=== PATIENT | male | born 1975 | race Caucasian/White ===

== ENCOUNTER 2024-07-14 06:07 | Emergency (ER) | payer BC, SELFPAY ==
[2024-07-14] VITALS (8 sets, daily range): BP systolic 125–141; BP diastolic 77–101; PULSE 67–86; RESP 15–23; O2SAT 91–97; BMI 31.8
--- NOTE | 2024-07-14 06:09 | W.ED.CHESTPA ---
HPI - Chest Pain General: Chief Complaint: Chest Pain Stated Complaint: Cp took 2 nitro Time Seen by Provider: 07/14/24 06:09 History of Present Illness: 48-year-old male with a known history of coronary disease previously had a interventions for his heart in [place] where he had stents he is also had angiograms within the last year at [facility] in [place]. Patient was sitting resting at home while on a conference call this morning and began to have chest discomfort as he describes it was no radiation into his neck arms or back however he did get diaphoretic and slightly short of breath. He took 2 sublingual nitro pills which did seem to help. Interestingly he said his worst the discomfort was at 2-3 out of 10 when he arrives here he says it still a 2 out of 10. He did have some symptoms of lightheadedness dizziness and flushing after taking the sublingual nitro which he states he is experienced in the past when taking sublingual nitro. He has not had any exertional symptoms in the last couple of weeks he has not had any other episodes in the last few weeks other chest discomfort or felt the need to take nitro recently. Patient has had significant heart disease in the past has AICD in place he said that his last echocardiogram the told him his ejection fraction was 30 to 35%. His initial EKG is suspicious patient states that he is told he always has a very abnormal looking EKG. He has not previously had any EKGs at our facility. Associated symptoms: Deny abdominal pain, dyspnea or fever(s) Related Data Home Medications ?Medication ?Instructions ?Recorded ?Confirmed aspirin 81 mg tablet,delayed 81 mg PO DAILY 07/14/24 07/14/24 release (Kayla Low Dose Aspirin) bupropion HCl 150 mg 24 hr tablet, 150 mg PO DAILY 07/14/24 07/14/24 extended release carvedilol 25 mg tablet 25 mg PO BID 07/14/24 07/14/24 clopidogrel 75 mg tablet 75 mg PO DAILY 07/14/24 07/14/24 dapagliflozin propanediol 10 mg 10 mg PO DAILY 07/14/24 07/14/24 tablet (Farxiga) digoxin 125 mcg (0.125 mg) tablet 0.125 mg PO DAILY 07/14/24 07/14/24 (Digitek) ezetimibe 10 mg tablet 10 mg PO DAILY 07/14/24 07/14/24 insulin glargine 100 unit/mL 15 unit SUBCUT DAILY 07/14/24 07/14/24 subcutaneous solution (Lantus U-100 Insulin) nitroglycerin 0.4 mg sublingual 0.4 mg sublingual Q5M PRN HEART 07/14/24 07/14/24 tablet omeprazole 20 mg tablet,delayed 20 mg PO DAILY 07/14/24 07/14/24 release ranolazine 500 mg tablet,extended 500 mg PO BID 07/14/24 07/14/24 release,12 hr rosuvastatin 40 mg tablet 40 mg PO DAILY 07/14/24 07/14/24 sacubitril 97 mg-valsartan 103 mg 1 tab PO BID 07/14/24 07/14/24 tablet (Entresto) spironolactone 25 mg tablet 25 mg PO BID 07/14/24 07/14/24 torsemide 20 mg tablet 40 mg PO DAILY 07/14/24 07/14/24 Allergies Allergy/AdvReac Type Severity Reaction Status Date / Time meperidine (From Demerol) Allergy ADR-Nausea Verified 07/14/24 06:13 Review of Systems Const: Denies: fever(s) or chills Card: Denies: chest pain Resp: Denies: dyspnea GI: Denies: abdominal pain : Denies: dysuria, urinary frequency or urinary urgency Musc: Denies: neck pain or back pain Skin/Breast: Denies: rash PFS ED PFSH: Medical History (Updated 07/14/24 @ 11:05 by Juan Hernandez DO) Diabetes mellitus Physical Exam Const: COMMON NORMALS: no acute distress GENERAL APPEARANCE: cooperative and comfortable ORIENTATION/CONSCIOUSNESS: Yes awake, Yes oriented to person, Yes oriented to place and Yes oriented to time HENMT: COMMON NORMALS: normocephalic, atraumatic and hearing grossly normal bilaterally HEAD & SCALP: normocephalic and atraumatic Resp: COMMON NORMALS: normal respiratory effort, No retractions, No use of accessory muscles and clear to auscultation bilaterally AUSCULTATION: clear to auscultation bilaterally Cardio: COMMON NORMALS: regular rate, regular rhythm and No murmurs present (Cardio) RATE: regular rate RHYTHM: regular rhythm GI: COMMON NORMALS: Soft to palpation and No hepatosplenomegaly present AUSCULTATION: Yes normoactive bowel sounds PALPATION: Yes Soft to palpation, No Tenderness to palpation present (GI), No Guarding due to palpation present (GI) and Yes No hepatosplenomegaly present Extremity: COMMON NORMALS: normal to inspection, capillary refill normal, no clubbing, cyanosis or edema, no calf tenderness and no pedal edema Neuro: SENSORIUM/ORIENTATION: Yes oriented to person, Yes oriented to place and Yes oriented to time Skin: COMMON NORMALS: no rashes or lesions noted GENERAL SKIN EXAM: no rashes or lesions noted Course Vital Signs: Vital signs: Vital Signs Pulse Rate 86 07/14/24 14:16 Respiratory Rate 16 07/14/24 14:16 Blood Pressure 141/86 07/14/24 14:16 Pulse Oximetry 95 07/14/24 14:16 Oxygen Delivery Me thod Room Air 07/14/24 09:47 MDM - Chest Pain Medical Decision Making 0630 Unfortunately we have no records. Patient's history is very concerning as initial EKG shows Q waves in 1 and aVL as well as in all of the anterior leads. There is no ST elevation particularly in V2 3 and 4 very slight elevation in 1 5 and 6. Does not completely meet criteria. After taking history and reviewing EKG immediately repeated an EKG 6 minutes after the first. The second EKG is equally as concerning however patient states she has minimal symptoms at this time we contacted Dr. Talamantes and had him review discussed the case with him he recommended trending troponins did not feel that this represented a STEMI at this time. We are still working at the time of this dictation to get his old EKGs from [facility]. 0709 received records from [facility] EKG dated February 03, 2024 similar in appearance to today's EKG done here no significant changes or acute changes. The January 19, 2024 EKG also had the Q waves and appear as though ST elevation in V2345 and 6. There is a notation on that report that the EKG was unchanged from November 25, 2023 and that the anterior lateral changes date back to March 17, 2023. I had placed patient on observation orders were written of discussed with cardiology and with hospitalist. Patient is pain-free on 10 mg of IV nitro. Cardiology consulted nurse practitioner for cardiology services seen the patient patient expressed that they wanted to go home. Patient was advised by cardiology he could go home and follow-up with his primary bag printer. Discharge recommendations per cardiology. Offered patient transfer to [facility] they declined they have a follow-up appointment in 1-2 weeks with the congestive heart failure clinic in [place]. Attempted to contact cardiology group that he sees at [facility] to update and arrange for shorter-term follow-up unable to contact the cardiology group. Their office was closed. Could not contact through the house painter helper at [facility]. Did attempt to leave a message through the house painter helper. Medical Records I reviewed the patient's medical records. Lab Data I reviewed the patient's lab results. 07/14/24 06:18 07/14/24 06:18 Radiology Impressions Chest X-Ray 07/14/24 06:23 IMPRESSION: 1. No acute cardiopulmonary finding. Laboratory Results WBC 11.30 10^3/uL (3.29-11.43) 07/14/24 06:18 RBC 4.72 10^6/uL (3.85-5.65) 07/14/24 06:18 Hgb 15.20 g/dL (11.27-16.99) 07/14/24 06:18 Hct 46.8 % (37-53) 07/14/24 06:18 MCV 99.2 fl (82-101) 07/14/24 06:18 MCH 32.2 pg (27-33) 07/14/24 06:18 MCHC 32.5 g/dL (30-55) 07/14/24 06:18 RDW 17.1 % (12.1-15.1) H 07/14/24 06:18 Plt Count 276 10^3/cmm (157-399) 07/14/24 06:18 MPV 10.1 fL (7.4-10.4) 07/14/24 06:18 Neut % (Auto) 70.0 % 07/14/24 06:18 Lymph % (Auto) 17.3 % 07/14/24 06:18 [place] % (Auto) 9.8 % 07/14/24 06:18 Eos % (Auto) 1.2 % 07/14/24 06:18 Baso % (Auto) 0.5 % 07/14/24 06:18 Neut # (Auto) 7.91 10^3/uL (1.8-7.7) H 07/14/24 06:18 Lymph # (Auto) 2.0 10^3/uL (0.8-4.8) 07/14/24 06:18 [place] # (Auto) 1.1 10^3/uL (0.2-0.9) H 07/14/24 06:18 Eos # (Auto) 0.1 10^3/uL (0.0-0.8) 07/14/24 06:18 Baso # (Auto) 0.1 10^3/uL (0.0-0.1) 07/14/24 06:18 Nucleated RBC % (auto) 0 % 07/14/24 06:18 Nucleated RBCs # 0.0 /100WBC 07/14/24 06:18 Sodium 138 mmol/L (136-145) 07/14/24 06:18 Potassium 4.6 mmol/L (3.5-5.1) 07/14/24 06:18 Chloride 101 mmol/L (98-107) 07/14/24 06:18 Carbon Dioxide 26 mmol/L (22-29) 07/14/24 06:18 Anion Gap 15.6 (5-19) 07/14/24 06:18 BUN 13 mg/dL (6-20) 07/14/24 06:18 Creatinine 0.6 mg/dL (0.7-1.2) L 07/14/24 06:18 GFR Calculation 143.8 mL/min (90-130) H 07/14/24 06:18 Glucose 103 mg/dL (65-115) 07/14/24 06:18 Calculated Osmolality 286 mOsm/kg (285-295) 07/14/24 06:18 Calcium 9.7 mg/dL (8.5-10.5) 07/14/24 06:18 Total Bilirubin 0.4 mg/dL (0.15-1.2) 07/14/24 06:18 AST 32 U/L (0-40) 07/14/24 06:18 ALT 53 U/L (0-41) H 07/14/24 06:18 Alkaline Phosphatase 73 U/L (40-130) 07/14/24 06:18 Troponin T Baseline 18 ng/L (0-15) H 07/14/24 06:18 Troponin T 120 Minute 15.41 ng/L (0-15) H 07/14/24 08:34 Delta Troponin T -2.59 ABS# (0-10) L 07/14/24 08:34 Troponin T Hi Sens 6Hr 15.41 ng/L (0-15) H 07/14/24 12:04 Troponin T Hi Sens 6Hr Delta -2.59 ng/L (0-12) L 07/14/24 12:04 Total Protein 7.5 g/dL (6.6-8.7) 07/14/24 06:18 Albumin 4.4 g/dL (3.5-5.2) 07/14/24 06:18 Globulin 3.1 g/dL (1.3-4.6) 07/14/24 06:18 Urine Color Yellow (Yellow) 07/14/24 09:59 Urine Appearance Clear (CLEAR) 07/14/24 09:59 Urine pH 6.5 (5-7) 07/14/24 09:59 Ur Specific [place] 1.015 (1.005-1.030) 07/14/24 09:59 Urine Protein Neg (Negative) 07/14/24 09:59 Urine Glucose (UA) 2+ (Normal) H 07/14/24 09:59 Urine Ketones 1+ (Negative) H 07/14/24 09:59 Urine Blood Neg (Negative) 07/14/24 09:59 Urine Nitrate Negative (Negative) 07/14/24 09:59 Urine Bilirubin Neg (Negative) 07/14/24 09:59 Urine Urobilinogen 4 mg/dL (Negative) H 07/14/24 09:59 Ur Leukocyte Esterase Negative (Negative) 07/14/24 09:59 Urine RBC 3-5 /hpf (0-2) 07/14/24 09:59 Urine WBC 0-5 /hpf (0-5) 07/14/24 09:59 Ur Squamous Epith Cells 0-5 /hpf (0-5) 07/14/24 09:59 Amorphous Sediment Not Reportable 07/14/24 09:59 Urine Bacteria None seen /hpf (NONE) 07/14/24 09:59 Hyaline Casts 0.40 /lpf 07/14/24 09:59 All radiology interpretation(s) finalized by discharge EKG Data EKG 1: Interpretation: Initial EKG 07/14/2024 6:10 AM EKG shows a sinus rhythm there is subtle ST elevation at V1 through V4 most notable in V3. V3 has 2 mm of elevation in V2 and 4 less than 1. No reciprocal changes there are Q waves in all of the anterior leads. No ST elevation in the inferior leads or other leads. Q waves noted in 1 and aVL as well. No ST wave inversion or depression. Rate of 77 NC interval 156 QT 350 Immediately repeated since we did not have old EKGs to compare to at 616 EKG shows similar findings as above. EKG rate of the second EKG at 68 bpm with NC interval of 133 QT interval of 364. Discharge Plan Discharge Patient Disposition: Home Clinical Impression: Unstable angina pectoris Condition: Stable Prescriptions: No Action spironolactone 25 mg tablet 25 mg PO BID bupropion HCl 150 mg tablet extended release 24 hr 150 mg PO DAILY dapagliflozin propanediol [Farxiga] 10 mg tablet 10 mg PO DAILY carvedilol 25 mg tablet 25 mg PO BID insulin glargine [Lantus U-100 Insulin] 100 unit/mL solution 15 unit SUBCUT DAILY torsemide 20 mg tablet 40 mg PO DAILY clopidogrel 75 mg tablet 75 mg PO DAILY digoxin [Digitek] 125 mcg (0.125 mg) tablet 0.125 mg PO DAILY ezetimibe 10 mg tablet 10 mg PO DAILY ranolazine 500 mg tablet extended release 12 hr 500 mg PO BID Entresto 97-103 mg tablet 1 tab PO BID aspirin [Kayla Low Dose Aspirin] 81 mg Tablet,Delayed Release (Dr/Ec) 81 mg PO DAILY nitroglycerin 0.4 mg Tablet, Sublingual 0.4 mg SUBLINGUAL Q5M PRN (Reason: HEART ) Rx Instructions: do not exceed 3 doses per episode omeprazole 20 mg Tablet,Delayed Release (Dr/Ec) 20 mg PO DAILY rosuvastatin 40 mg tablet 40 mg PO DAILY Discharge Orders: Discharge ED (Routine); Ordered 07/14/24 Ordered By: Juan Hernandez Patient Instructions: Opioid Safety, Pain Management Activity Restrictions/Additional Instructions: You were seen and evaluated in the emergency room discharge instructions per bag printer recommendation. Return to ER if has more chest pain symptoms. Print Language: [place] Coding Level of Care Code ED Exhibitions Curator for Damon Orlando
--- NOTE | 2024-07-14 06:10 | ECG_ITS ---
[employer] Test Date: 2024-07-14 Pat Name: Jabari Boyd Department: Room: Gender: Male Service Rig Operator: : 1975 Requested By: Juan Allen Order Number: [id number] Paty MD: Maicol Vazquez M.D. Measurements Intervals [place] Rate: 77 P: 62 VT: 156 QRS: -6 QRSD: 97 T: 96 QT: 350 QTc: 397 Interpretive Statements SINUS RHYTHM ANTERIOR MYOCARDIAL INFARCTION , OF INDETERMINATE AGE [40+ ms Q WAVE AND/OR ST/T ABNORMALITY IN V3/V4] MODERATE T-WAVE ABNORMALITY, CONSIDER LATERAL ISCHEMIA [-0.1+ mV T-WAVE IN I/aVL/V5/V6] INTERPRETATION BASED ON A DEFAULT AGE OF 40 YEARS No previous ECG available for comparison Electronically Signed On 07-14-2024 14:21:33 CDT by Maicol Vazquez M.D. [id number] [id number]
--- NOTE | 2024-07-14 06:16 | ECG_ITS ---
[facility] Date: 2024-07-14 Pat Name: Jabari Boyd Department: Room: Gender: Male Flight Manager: : 1975 Requested By: Juan Allen Order Number: [id number] Paty MD: Maicol Vazquez M.D. Measurements Intervals [place] Rate: 68 P: -19 [place]: 133 QRS: 0 QRSD: 113 T: 105 QT: 364 QTc: 389 Interpretive Statements SINUS RHYTHM ANTEROLATERAL MYOCARDIAL INFARCTION , PROBABLY RECENT [40+ ms Q WAVE IN I/aVL/V3-V6] ACUTE RI INTERPRETATION BASED ON A DEFAULT AGE OF 40 YEARS Compared to ECG 07/14/2024 06:10:36 T-wave abnormality no longer present Possible ischemia no longer present Myocardial infarct finding still present Electronically Signed On 07-14-2024 14:21:28 CDT by Maicol Vazquez M.D. [id number] [id number]
--- NOTE | 2024-07-14 06:23 | XR_ITS ---
WS: [id number] Exam: XR chest 1V portable [id number] Date/Time of Exam: 07/14/2024 6:47 AM Reason For Exam: dyspnea/cough No priors. The lungs are fully inflated and clear. Cardiomediastinal silhouette is unremarkable for technique. No pleural effusions. A cardiac pacer superimposes the LEFT chest. Bony structures appear normal. XR/XR chest 1V portable [id number] IMPRESSION: 1. No acute cardiopulmonary finding.
--- NOTE | 2024-07-14 06:28 | PC.NURSE ---
EKG sent to Dr. Mejia for review
[2024-07-14] MEDS: nitroglycerin drip 50 MG/250 ML PREMIX IV (06:32)
[2024-07-14] MEDS: aspirin 81 mg Chew Tablet 324 MG PO (06:32)
[2024-07-14 06:43] LABS: Troponin(5th) Baseline 18 ng/L (0-15)
[2024-07-14 06:45] LABS: Alanine Aminotransferase 53 U/L (0-41); Albumin Level 4.4 g/dL (3.5-5.2); Alkaline Phosphatase 73 U/L (40-130); Anion Gap 15.6 (5-19); Aspartate Amino Transferase 32 U/L (0-40); Blood Urea Nitrogen 13 mg/dL (6-20); Calcium 9.7 mg/dL (8.5-10.5); Carbon Dioxide 26 mmol/L (22-29); Chloride 101 mmol/L (98-107); Globulin 3.1 g/dL (1.3-4.6); Glomerular Filtration Rate 143.8 mL/min (90-130); Glucose 103 mg/dL (65-115); Osmolality Calculated 286 mOsm/kg (285-295); Potassium 4.6 mmol/L (3.5-5.1); Sodium 138 mmol/L (136-145); Total Bilirubin 0.4 mg/dL (0.15-1.2); Total Protein 7.5 g/dL (6.6-8.7)
[2024-07-14 06:50] LABS: Basophils # 0.1 10^3/uL (0.0-0.1); Basophils % 0.5 %; Eosinophils # 0.1 10^3/uL (0.0-0.8); Eosinophils % 1.2 %; Hematocrit 46.8 % (37-53); Lymphocytes % 17.3 %; Mean Corpuscular HGB Conc 32.5 g/dL (30-55); Mean Corpuscular Hemoglobin 32.2 pg (27-33); Mean Corpuscular Volume 99.2 fl (82-101); Mean Platelet Volume 10.1 fL (7.4-10.4); Monocytes # 1.1 10^3/uL (0.2-0.9); Monocytes % 9.8 %; Neutrophils # 7.91 10^3/uL (1.8-7.7); Nucleated Red Blood Cells % 0 %; Platelet Count 276 10^3/cmm (157-399); Red Blood Count 4.72 10^6/uL (3.85-5.65); Red Cell Distribution Width 17.1 % (12.1-15.1)
--- NOTE | 2024-07-14 08:24 | ECG_ITS ---
[employer] Test Date: 2024-07-14 Pat Name: Jabari Boyd Department: Room: Gender: Male Staking Technician: : 1975 Requested By: Juan Allen Order Number: [id number] Paty MD: Maicol Vazquez M.D. Measurements Intervals [place] Rate: 70 P: 19 AL: 168 QRS: -10 QRSD: 106 T: 90 QT: 360 QTc: 388 Interpretive Statements SINUS RHYTHM MINIMAL VOLTAGE CRITERIA FOR LVH, CONSIDER NORMAL VARIANT [MEETS CRITERIA IN ONE OF: R(aVL), S(V1), R(V5), R(V5/V6)+S(V1)] ANTERIOR MYOCARDIAL INFARCTION , OF INDETERMINATE AGE [40+ ms Q WAVE AND/OR ST/T ABNORMALITY IN V3/V4] Compared to ECG 07/14/2024 06:16:49 No significant changes Electronically Signed On 07-14-2024 14:26:05 CDT by Maicol Vazquez M.D. [id number] [id number]
[2024-07-14 08:59] LABS: Troponin 5 2HR 15.41 ng/L (0-15); Troponin 5 2HR Delta -2.59 ABS# (0-10)
--- NOTE | 2024-07-14 09:17 | PC.PHAR ---
pATIENT STATES HE TAKES fAEXIGA Margo STATES THEY HAVEN'T FILLED IT SINCE january AND THEY FILLED THE GENERIC. tHEY ALSO STATED THEY DON'T HAVE A SCRIPT FOR THE NITRO PATIENT STATES HE HAS.
--- NOTE | 2024-07-14 09:49 | P.CONIM_ITS ---
<Statement entered by Enrico Powell M.D - 07/15/24 10:16> Patient was evaluated and cared for in conjunction with an advanced practice practitioner.? I personally examined the patient and reviewed the chart and all pertinent data including imaging, telemetry, and laboratory results.? I discussed the patient in detail with the advanced practice practitioner.? Please see? their note for complete consult note, testing results and agreed upon plan of care for the patient. GENERAL: Patient is alert, awake and oriented x3. HEART: Regular S1 and S2 LUNGS: Clear to auscultate bilaterally. CENTRAL NERVOUS SYSTEM: Grossly nonfocal. EXTREMITIES: Lower extremities with out edema bilaterally. Patient is chest pain free at this time. Troponins have not trended up significantly. EKG is not ischemic. Patient had cardiac catheterization a few months back and did not have intervention done. He had a stress test 2 months back in [place] per patient and was told was negative for ischemia. Patient was advised to be admitted for observation with repeat limited echocardiogram and obtaining all records, however as patient is chest pain at this time, he does not want to stay. He has a follow-up appointment with cardiology in [place] in 5 days. He understands risks and after detailed discussion he understands ER warning signs and symptoms. Advised to come back to emergency room if has any further chest pain symptoms. Has an ICD in place. Thank you for involving us with care of this patient. Please call with questions. Providers/Reason For Consult 2 Consulting Physician/Specialty*: Dr Powell, cardiology Reason for Consult*: chest pain Requesting Physician: Dr Hernandez History of Present Illness History of Present Illness Jabari Boyd is a 48 year old male with past medical history of diabetes, systolic heart failure (LVEF previously around 20%, now increased to 35%), myocardial infarction with LV thrombus (anticoagulated previously but not now), coronary artery disease with 3 stents to unknown vessels. He awoke this morning at 0130 for a video conference call with his work in [place]. He noted some diaphoresis first, then some heaviness in the chest rated 1/10 in the epigastric region. The character of pain and pattern was the same as he had had previously when his stents were placed, he notes at that time cardiac enzymes were only slightly elevated but had obstructive CAD. Last month he was seen by the transplant team at [facility] in [place] and underwent testing, he is also followed by Dr. Lincoln in [facility]. Blood pressure at the time of his symptoms this morning was in the 120's systolic, he did not have any nausea, vomiting, dizziness, shortness of breath. He has not had any lower extremity edema, orthopnea, weight gain recently. Medical management for systolic heart failure has been managed by his burnisher in [place], patient reports currently on Farxiga, spironolactone, Entresto and recently switched from Lasix to torsemide. He has lost about 40 pounds recently after being diagnosed with diabetes, hemoglobin A1c was initially 10.7% now down to 5.7%. Review of Systems 2 Const: Denies: fever(s), chills, change in weight, fatigue or diaphoresis Eyes: Denies: change in vision ENMT: Denies: epistaxis Card: Denies: chest pain, palpitations, irregular heart rhythm, edema, syncope, pre-syncope, dyspnea on exertion, orthopnea or leg pain with exertion Resp: Denies: dyspnea, productive cough or wheezing GI: Denies: nausea, vomiting, hematemesis, hematochezia or melena : Denies: hematuria Musc: Denies: extremity swelling Dio/Lymph: Denies: easy bruising or easy bleeding Medications/Allergies Home Medications ?Medication ?Instructions ?Recorded ?Confirmed ?Last Taken ?Type aspirin 81 mg tablet,delayed 81 mg PO DAILY 07/14/24 0 07/14/24 07/13/24 History release (Kayla Low Dose Aspirin) bupropion HCl 150 mg 24 hr tablet, 150 mg PO DAILY 07/14/24 07/14/24 History extended release carvedilol 25 mg tablet 25 mg PO BID 07/14/2407/14/24 History clopidogrel 75 mg tablet 75 mg PO DAILY 07/14/2406/1807/13/24 History dapagliflozin propanediol 10 mg 10 mg PO DAILY 5 07/14/24 Unknown History tablet (Farxiga) digoxin 125 mcg (0.125 mg) tablet 0.125 mg PO DAILY 07/14/24 07/13/24 History (Digitek) ezetimibe 10 mg tablet 10 mg PO DAILY 07/14/2406/1807/13/24 History insulin glargine 100 unit/mL 15 unit SUBCUT DAILY 06/1807/14/24 07/13/24 History subcutaneous solution (Lantus U-100 Insulin) nitroglycerin 0.4 mg sublingual 0.4 mg sublingual Q5M PRN HEART 07/14/24 07/14/24 Unknown History tablet omeprazole 20 mg tablet,delayed 20 mg PO DAILY 5 07/14/24 07/13/24 History release ranolazine 500 mg tablet,extended 500 mg PO BID 07/14/24 07/13/24 History release,12 hr rosuvastatin 40 mg tablet 40 mg PO DAILY 07/14/2406/18 Unknown History sacubitril 97 mg-valsartan 103 mg 1 tab PO BID 5 07/14/24 07/13/24 History tablet (Entresto) spironolactone 25 mg tablet 25 mg PO BID 07/14/2406/1807/13/24 History torsemide 20 mg tablet 40 mg PO DAILY 07/14/2406/1807/13/24 History Allergies Allergy/AdvReac Type Severity Reaction Status Date / Time meperidine (From Demerol) Allergy ADR-Nausea Verified 07/14/24 06:13 Current Medications Generic Name Dose Route Start Last Admin Trade Name Freq PRN Reason Stop Dose Admin Nitroglycerin/Dextrose 50 mg in 250 mls @ 0 mls/hr 07/14/24 06:30 07/14/24 06:32 Nitroglycerin Drip IV 10 mcg/min .Q0M BARRY 3 mls/hr Administration Protocol Per Protocol PFSH Acute 2 PFSH: Medical History (Updated 07/14/24 @ 11:05 by Juan Hernandez DO) Diabetes mellitus Vitals/I&O/Wt Last Vital Signs Pulse 76 07/14/24 09:47 Resp 15 07/14/24 09:47 BP 126/88 07/14/24 09:47 Pulse Ox 96 07/14/24 09:47 O2 Del Method Room Air 07/14/24 09:47 Weight last 48 hrs Weight 222 lb Physical Exam 2 Const: COMMON NORMALS: no acute distress and patient oriented x3 GENERAL APPEARANCE: cooperative and comfortable ORIENTATION/CONSCIOUSNESS: Yes awake, Yes oriented to person, Yes oriented to place and Yes oriented to time Chest: COMMONS NORMALS: normal inspection of the chest and normal palpation of entire chest wall CHEST: Yes Symmetrical chest wall rise Resp: COMMON NORMALS: normal respiratory effort, No retractions, No use of accessory muscles and clear to auscultation bilaterally EFFORT & INSPECTION: Yes symmetric chest movement AUSCULTATION: clear to auscultation bilaterally Cardio: COMMON NORMALS: regular rate, regular rhythm, S1 normal heart sound present, S2 normal heart sound present, No gallops present (Cardio), No clicks present (Cardio), No murmurs present (Cardio) and No rub (Cardio) RATE: r egular rate RHYTHM: regular rhythm HEART SOUNDS: S1 normal heart sound present and S2 normal heart sound present PERIPHERAL PULSES: radial pulses present Extremity: COMMON NORMALS: no pedal edema Neuro: COMMON NORMALS: patient oriented x3 and moves all extremities S ENSORIUM/ORIENTATION: Yes oriented to person, Yes oriented to place and Yes oriented to time Data 07/14/24 06:18 07/14/24 06:18 A&P Assessment and plan (1) Chest pain: (2) Systolic CHF: (3) Coronary artery disease: (4) ICD (implantable cardioverter-defibrillator) in place: Plan He does not have chest pain or pressure currently, he is on a nitroglycerin infusion at 10 mcg/h. Discussed with the patient his symptoms, results of previous testing. He would like to go home and follow-up with his burnisher at his scheduled appointment in [place] next week 07/20/24, as long as he is stable to do so. He does not have ACS, troponin not trending up, EKG not concerning for acute ischemia and currently chest pain free, so that would be acceptable. Discussed with Dr Hernandez. If he develops chest pain unrelieved by nitroglycerin, or recurrent chest pain that requires multiple nitroglycerin for relief he should return to the ER for evaluation. Otherwise he should follow up with his burnisher team at his appointment on 07/20/34. PDMP PDMP Reviewed: Not Reviewed Coding Level of Care Code Acute Code for [facility] Fwd Diagnoses Chest pain R07.9 Systolic CHF I50.20 Coronary artery disease I25.10 ICD (implantable cardioverter-defibrillator) in place Z95.810
[2024-07-14 10:05] LABS: Bacteria Urine None Seen /hpf; Squamous Epithelial Cell Urine 0-5 /hpf (0-5); WBC Urine 0-5 /hpf (0-5)
[2024-07-14 10:14] LABS: Add Urine Microscopic? YES; Bilirubin Urine Neg (Negative); Blood Urine Neg (Negative); Glucose Urine UA 2+ (Normal); Ketones Urine 1+ (Negative); Leukocyte Esterase Urine Negative (Negative); Nitrate Urine Negative (Negative); Protein Urine Neg (Negative); Specific Gravity, Urine 1.015 (1.005-1.030); Urine Appearance Clear (CLEAR); Urine Color Yellow (Yellow); Urobilinogen Urine 4 mg/dL (Negative); pH Urine 6.5 (5-7)
[2024-07-14 12:26] LABS: Troponin 5 6HR 15.41 ng/L (0-15)
[2024-07-14 12:27] LABS: Troponin 5 6HR Delta -2.59 ng/L (0-12)
== END 2024-07-14 14:13 | disposition home or self-care (01) ==
PROVIDERS: Emergency Provider Family Medicine
DX: I20.0 Unstable angina (principal); E11.9 Type 2 diabetes mellitus without complications; Z79.02 Long term (current) use of antithrombotics/antiplatelets; Z79.4 Long term (current) use of insulin; Z79.82 Long term (current) use of aspirin
CPT/HCPCS: 36415; 71045; 80053; 81001; 84484; 85025; 93005; 99285; J3490; J9999